=== PATIENT | male | born 2000 | race Caucasian/White ===

== ENCOUNTER 2021-05-07 15:20 | Emergency (ER) | payer OTHER ==
[~2021-05-07] VITALS: Ht 182.9 cm; Wt 67.0 kg
--- NOTE | 2021-05-07 15:33 | NUR ---
CALLED FOR TRIAGE, NO ANSWER
[2021-05-07 15:43] VITALS: BP 101/56
--- NOTE | 2021-05-07 16:17 | NUR ---
xray at [facility]
--- NOTE | 2021-05-07 17:26 | NUR ---
Patient given discharge instructions and they have confirmed that they understand the instructions. Patient ambulatory with steady gait.
== END 2021-05-07 17:27 | disposition home or self-care (01) ==
LOC: ED 17:00
DX: S90.851A Superficial foreign body, right foot, initial encounter (principal); W25.XXXA Contact with sharp glass, initial encounter; Y93.89 Activity, other specified; Y92.009 Unspecified place in unspecified non-institutional (private) residence as the place of occurrence of the external cause; Y99.8 Other external cause status
CPT/HCPCS: 99283

== ENCOUNTER 2021-06-22 11:35 | Emergency (ER) | payer OTHER ==
[~2021-06-22] VITALS: Ht 182.9 cm; Wt 67.5 kg
[2021-06-22 11:43] VITALS: BP 120/83
--- NOTE | 2021-06-22 11:52 | NUR ---
PT HERE FOR C/O RIGHT CHEST DISCOMFORT X7 DAYS UPON WAKING UP IN THE MORNINGS. DENIES RADIATING PAIN.
[2021-06-22] MEDS ORDERED: METHOCARBAMOL 750 MG TABLET ONE (12:22)
[2021-06-22] MEDS ORDERED: KETOROLAC 30 MG/1 ML ONE (12:23)
[2021-06-22] MEDS ORDERED: METHOCARBAMOL 750 MG TABLET PO ONE (12:30)
[2021-06-22] MEDS ORDERED: KETOROLAC 30 MG/1 ML IM ONE (12:30)
== END 2021-06-22 13:00 | disposition home or self-care (01) ==
LOC: ED 12:18
DX: S29.011A Strain of muscle and tendon of front wall of thorax, initial encounter (principal); X58.XXXA Exposure to other specified factors, initial encounter; Y93.89 Activity, other specified; Y92.89 Other specified places as the place of occurrence of the external cause; Y99.8 Other external cause status
CPT/HCPCS: 96372; 99283; J1885